=== PATIENT | male | born 1995 | race Caucasian/White ===

== ENCOUNTER 2022-09-17 12:37 | Inpatient (IN) | payer OTHER ==
[2022-09-17 13:31] VITALS: BMI 28.8
[2022-09-17] MEDS ORDERED: LOPERAMIDE HCL 2 MG CAPSULE PO PRN (15:58)
[2022-09-17] MEDS ORDERED: BENZOCAINE/MENTHOL (CHLORASEPTIC ) LOZENGE MM PRN (15:58)
[2022-09-17] MEDS ORDERED: ACETAMINOPHEN 325 MG TABLET (FP) PO PRN (15:58)
[2022-09-17] MEDS ORDERED: POLYETHYLENE GLYCOL (HEALTHYLAX) 3350 17 GM PACKET PO PRN (15:58)
[2022-09-17] MEDS ORDERED: MAG HYDROX/AL HYDROX/SIMETH 30 ML UNIT-DOSE CUP PO PRN (15:58)
[2022-09-17] MEDS ORDERED: MAGNESIUM HYDROX 2400MG/30ML ORAL SUSPENSION 30 ML CUP PO PRN (15:58)
[2022-09-17] MEDS ORDERED: P-EPHED 60MG/TRIPROLIDI 2.5MG TABLET PO PRN (15:58)
[2022-09-17] MEDS ORDERED: guaiFENesin 200 MG/10 ML 10 ML UNIT-DOSE CUPS PO PRN (15:58)
[2022-09-17] MEDS ORDERED: IBUPROFEN 400 MG TABLET (FP) PO PRN (15:58)
[2022-09-17] MEDS ORDERED: NALOXONE HCL (KLOXXADO) 8 MG SPRAY NS PRN (15:58)
[2022-09-17] MEDS ORDERED: BUPRENORPHINE/NALOXONE 12 MG-3 MG SL FILM PACKET SL ONE (20:30)
[2022-09-17] MEDS: THIAMINE HCL 100 MG TABLET (FP) PO SCH (21:33)
[2022-09-17] MEDS: MELATONIN 5 MG TABLETS PO SCH (21:33)
[2022-09-17] MEDS: NICOTINE 10 MG CARTRIDGE (INHALER) IH PRN (21:34)
[2022-09-17] MEDS: NICOTINE 21 MG/24 HOURS TOPICAL PATCH TD SCH (21:35)
[2022-09-17] MEDS: hydrOXYzine PAMOATE 25 MG CAPSULE (FP) PO PRN (21:38)
[2022-09-17] MEDS ORDERED: TUBERCULIN PPD 5 TU/0.1ML VIAL ID ONE (21:39)
[2022-09-17] MEDS: NICOTINE POLACRILEX 4 MG GUM BUC PRN (21:42)
[2022-09-18] MEDS: PRENATAL VITAMINS W/ FOLIC ACID TABLET (FP) PO SCH (10:51)
[2022-09-18] MEDS: NICOTINE 21 MG/24 HOURS TOPICAL PATCH TD SCH (10:52)
[2022-09-18] MEDS: BUPRENORPHINE/NALOXONE 12 MG-3 MG SL FILM PACKET SL SCH (10:52)
[2022-09-18] MEDS: NICOTINE 10 MG CARTRIDGE (INHALER) IH PRN ×3 (10:58→21:41)
[2022-09-18] MEDS: hydrOXYzine PAMOATE 25 MG CAPSULE (FP) PO PRN ×2 (10:59→19:08)
[2022-09-18 12:17] LABS: HEMATOCRIT 42.9 % (35.4-49); HEMOGLOBIN 14.5 GM/dL (11.7-16.9); MCHC 33.9 g/dl (32.0-35.9); MEAN CELL VOLUME 88.5 fl (80-96); MEAN PLT VOLUME 8.3 fl (7.5-11.1); PLATELET COUNT 260 10^3/uL (134-434); RBC 4.84 M/mm3 (4.00-5.60); RDW 13.6 % (11.9-15.9); WHITE BLOOD COUNT 6.6 K/mm3 (4.0-10.0)
[2022-09-18 12:38] LABS: CALCIUM 9.7 mg/dL (8.5-10.1)
[2022-09-18 12:39] LABS: ALBUMIN 4.3 g/dl (3.4-5.0); BLOOD UREA NITROGEN 12.6 mg/dL (7-18); CREATININE 0.9 mg/dL (0.55-1.3)
[2022-09-18 12:41] LABS: BILIRUBIN,TOTAL 0.4 mg/dL (0.2-1); TOT PROT 8.1 g/dl (6.4-8.2)
[2022-09-18 13:19] LABS: SYPHILIS W/ RPR CONF NON-REACTIVE (NONREACTIVE)
[2022-09-18] MEDS ORDERED: LURASIDONE HCL 40 MG TABLET PO SCH (14:45)
[2022-09-18] MEDS: FLUoxetine HCL 20 MG CAPSULE PO SCH (16:00)
[2022-09-18] MEDS: LURASIDONE HCL 40 MG, LURASIDONE HCL 20 MG PO SCH (16:00)
[2022-09-18] MEDS: TOPIRAMATE 25 MG TABLET PO SCH (16:00)
[2022-09-18] MEDS: BENZTROPINE MESYLATE 1 MG TABLET PO SCH (21:39)
[2022-09-18] MEDS: QUEtiapine FUMARATE 50 MG TABLET PO SCH (21:39)
[2022-09-18] MEDS: MELATONIN 5 MG TABLETS PO SCH (21:39)
[2022-09-18] MEDS: GABAPENTIN 400 MG CAPSULE PO SCH (21:39)
[2022-09-18] MEDS: THIAMINE HCL 100 MG TABLET (FP) PO SCH (21:39)
[2022-09-18] MEDS: HALOPERIDOL 5 MG TABLET PO SCH (21:39)
[2022-09-18] MEDS: TOPIRAMATE 100 MG TABLET PO SCH (23:38)
[2022-09-19] MEDS: PRENATAL VITAMINS W/ FOLIC ACID TABLET (FP) PO SCH (10:37)
[2022-09-19] MEDS: GABAPENTIN 400 MG CAPSULE PO SCH ×2 (10:38→21:28)
[2022-09-19] MEDS: BENZTROPINE MESYLATE 1 MG TABLET PO SCH ×2 (10:38→21:28)
[2022-09-19] MEDS: BUPRENORPHINE/NALOXONE 12 MG-3 MG SL FILM PACKET SL SCH (10:38)
[2022-09-19] MEDS: FLUoxetine HCL 20 MG CAPSULE PO SCH (10:38)
[2022-09-19] MEDS: LURASIDONE HCL 40 MG, LURASIDONE HCL 20 MG PO SCH (10:38)
[2022-09-19] MEDS: HALOPERIDOL 5 MG TABLET PO SCH ×2 (10:38→21:28)
[2022-09-19] MEDS: TOPIRAMATE 25 MG TABLET PO SCH (10:40)
[2022-09-19] MEDS: NICOTINE 21 MG/24 HOURS TOPICAL PATCH TD SCH (10:40)
[2022-09-19] MEDS: NICOTINE 10 MG CARTRIDGE (INHALER) IH PRN ×2 (14:11→19:01)
[2022-09-19] MEDS: hydrOXYzine PAMOATE 25 MG CAPSULE (FP) PO PRN (14:11)
[2022-09-19 14:27] LABS: PH,URINE 6.5 (5.0-8.0); URINE APPEARANCE CLEAR; URINE BILIRUBIN NEGATIVE (NEGATIVE); URINE COLOR YELLOW; URINE GLUCOSE (UA) NEGATIVE (NEGATIVE); URINE KETONE NEGATIVE (NEGATIVE); URINE LEUK ESTERASE NEGATIVE (NEGATIVE); URINE NITRITE NEGATIVE (NEGATIVE); URINE PROTEIN NEGATIVE (NEGATIVE); URINE UROBILINOGEN 0.2 mg/dL (0.2-1.0)
[2022-09-19] MEDS: TOPIRAMATE 100 MG TABLET PO SCH (21:27)
[2022-09-19] MEDS: MELATONIN 5 MG TABLETS PO SCH (21:27)
[2022-09-19] MEDS: THIAMINE HCL 100 MG TABLET (FP) PO SCH (21:27)
[2022-09-19] MEDS: QUEtiapine FUMARATE 50 MG TABLET PO SCH (21:28)
[2022-09-19] MEDS: NICOTINE POLACRILEX 4 MG GUM BUC PRN (21:38)
[2022-09-20] MEDS: LURASIDONE HCL 40 MG, LURASIDONE HCL 20 MG PO SCH (10:24)
[2022-09-20] MEDS: GABAPENTIN 400 MG CAPSULE PO SCH ×2 (10:24→21:11)
[2022-09-20] MEDS: BENZTROPINE MESYLATE 1 MG TABLET PO SCH ×2 (10:24→21:11)
[2022-09-20] MEDS: FLUoxetine HCL 20 MG CAPSULE PO SCH (10:24)
[2022-09-20] MEDS: BUPRENORPHINE/NALOXONE 12 MG-3 MG SL FILM PACKET SL SCH (10:24)
[2022-09-20] MEDS: TOPIRAMATE 25 MG TABLET PO SCH (10:24)
[2022-09-20] MEDS: HALOPERIDOL 5 MG TABLET PO SCH ×2 (10:25→21:11)
[2022-09-20] MEDS: NICOTINE 21 MG/24 HOURS TOPICAL PATCH TD SCH (10:25)
[2022-09-20] MEDS: PRENATAL VITAMINS W/ FOLIC ACID TABLET (FP) PO SCH (10:25)
[2022-09-20] MEDS: NICOTINE 10 MG CARTRIDGE (INHALER) IH PRN ×3 (10:26→21:12)
[2022-09-20] MEDS: hydrOXYzine PAMOATE 25 MG CAPSULE (FP) PO PRN (16:47)
[2022-09-20] MEDS: THIAMINE HCL 100 MG TABLET (FP) PO SCH (21:11)
[2022-09-20] MEDS: QUEtiapine FUMARATE 50 MG TABLET PO SCH (21:11)
[2022-09-20] MEDS: MELATONIN 5 MG TABLETS PO SCH (21:11)
[2022-09-20] MEDS: TOPIRAMATE 100 MG TABLET PO SCH (21:12)
[2022-09-20] MEDS: NICOTINE POLACRILEX 4 MG GUM BUC PRN (21:13)
[2022-09-21] MEDS: hydrOXYzine PAMOATE 25 MG CAPSULE (FP) PO PRN ×2 (05:54→21:23)
[2022-09-21] MEDS: NICOTINE 10 MG CARTRIDGE (INHALER) IH PRN ×3 (05:56→19:35)
[2022-09-21] MEDS: PRENATAL VITAMINS W/ FOLIC ACID TABLET (FP) PO SCH (09:56)
[2022-09-21] MEDS: LURASIDONE HCL 40 MG, LURASIDONE HCL 20 MG PO SCH (09:56)
[2022-09-21] MEDS: TOPIRAMATE 25 MG TABLET PO SCH (09:56)
[2022-09-21] MEDS: FLUoxetine HCL 20 MG CAPSULE PO SCH (09:56)
[2022-09-21] MEDS: GABAPENTIN 400 MG CAPSULE PO SCH ×2 (09:56→21:21)
[2022-09-21] MEDS: HALOPERIDOL 5 MG TABLET PO SCH ×2 (09:56→21:21)
[2022-09-21] MEDS: BENZTROPINE MESYLATE 1 MG TABLET PO SCH ×2 (09:56→21:21)
[2022-09-21] MEDS: NICOTINE 21 MG/24 HOURS TOPICAL PATCH TD SCH (09:57)
[2022-09-21] MEDS: BUPRENORPHINE/NALOXONE 12 MG-3 MG SL FILM PACKET SL SCH (09:57)
[2022-09-21] MEDS: TOPIRAMATE 100 MG TABLET PO SCH (21:21)
[2022-09-21] MEDS: QUEtiapine FUMARATE 50 MG TABLET PO SCH (21:21)
[2022-09-21] MEDS: MELATONIN 5 MG TABLETS PO SCH (21:21)
[2022-09-21] MEDS: THIAMINE HCL 100 MG TABLET (FP) PO SCH (21:21)
[2022-09-22] MEDS: NICOTINE 10 MG CARTRIDGE (INHALER) IH PRN ×3 (05:58→21:17)
[2022-09-22] MEDS: hydrOXYzine PAMOATE 25 MG CAPSULE (FP) PO PRN (05:58)
[2022-09-22] MEDS: BENZTROPINE MESYLATE 1 MG TABLET PO SCH ×2 (10:09→21:17)
[2022-09-22] MEDS: HALOPERIDOL 5 MG TABLET PO SCH ×2 (10:09→21:17)
[2022-09-22] MEDS: NICOTINE 21 MG/24 HOURS TOPICAL PATCH TD SCH (10:09)
[2022-09-22] MEDS: TOPIRAMATE 25 MG TABLET PO SCH (10:09)
[2022-09-22] MEDS: LURASIDONE HCL 40 MG, LURASIDONE HCL 20 MG PO SCH (10:09)
[2022-09-22] MEDS: PRENATAL VITAMINS W/ FOLIC ACID TABLET (FP) PO SCH (10:09)
[2022-09-22] MEDS: FLUoxetine HCL 20 MG CAPSULE PO SCH (10:09)
[2022-09-22] MEDS: BUPRENORPHINE/NALOXONE 12 MG-3 MG SL FILM PACKET SL SCH (10:09)
[2022-09-22] MEDS: GABAPENTIN 400 MG CAPSULE PO SCH ×2 (10:09→21:17)
[2022-09-22] MEDS: MELATONIN 5 MG TABLETS PO SCH (21:17)
[2022-09-22] MEDS: THIAMINE HCL 100 MG TABLET (FP) PO SCH (21:17)
[2022-09-22] MEDS: TOPIRAMATE 100 MG TABLET PO SCH (21:17)
[2022-09-22] MEDS: QUEtiapine FUMARATE 50 MG TABLET PO SCH (21:17)
[2022-09-23] MEDS: TOPIRAMATE 25 MG TABLET PO SCH (09:45)
[2022-09-23] MEDS: NICOTINE 21 MG/24 HOURS TOPICAL PATCH TD SCH (09:45)
[2022-09-23] MEDS: BENZTROPINE MESYLATE 1 MG TABLET PO SCH ×2 (09:45→21:32)
[2022-09-23] MEDS: GABAPENTIN 400 MG CAPSULE PO SCH ×2 (09:45→21:32)
[2022-09-23] MEDS: HALOPERIDOL 5 MG TABLET PO SCH ×2 (09:45→21:32)
[2022-09-23] MEDS: LURASIDONE HCL 40 MG, LURASIDONE HCL 20 MG PO SCH (09:45)
[2022-09-23] MEDS: BUPRENORPHINE/NALOXONE 12 MG-3 MG SL FILM PACKET SL SCH (09:45)
[2022-09-23] MEDS: PRENATAL VITAMINS W/ FOLIC ACID TABLET (FP) PO SCH (09:45)
[2022-09-23] MEDS: FLUoxetine HCL 20 MG CAPSULE PO SCH (09:45)
[2022-09-23] MEDS: NICOTINE 10 MG CARTRIDGE (INHALER) IH PRN ×2 (09:46→21:34)
[2022-09-23] MEDS: hydrOXYzine PAMOATE 25 MG CAPSULE (FP) PO PRN (18:32)
[2022-09-23] MEDS: QUEtiapine FUMARATE 50 MG TABLET PO SCH (21:32)
[2022-09-23] MEDS: MELATONIN 5 MG TABLETS PO SCH (21:32)
[2022-09-23] MEDS: THIAMINE HCL 100 MG TABLET (FP) PO SCH (21:32)
[2022-09-23] MEDS: TOPIRAMATE 100 MG TABLET PO SCH (21:34)
[2022-09-24] MEDS ORDERED: FAMOTIDINE 20 MG TABLET PO PRN (10:00)
[2022-09-24] MEDS ORDERED: PATIENT'S OWN MEDICATION (NON-FORMULARY) (Lurasidone Hcl [Latuda] 60 MG Tablet) PO SCH (10:00)
[2022-09-24] MEDS ORDERED: PATIENT'S OWN MEDICATION (NON-FORMULARY) (Fluoxetine Hcl [Prozac] 40 MG Capsule) PO SCH (10:00)
[2022-09-24] MEDS ORDERED: PATIENT'S OWN MEDICATION (NON-FORMULARY) (Topiramate [Topamax] 50 MG Tablet) PO SCH ×2 (10:00→22:00)
[2022-09-24] MEDS: FLUoxetine HCL 20 MG CAPSULE PO SCH (10:15)
[2022-09-24] MEDS: PRENATAL VITAMINS W/ FOLIC ACID TABLET (FP) PO SCH (10:15)
[2022-09-24] MEDS: BUPRENORPHINE/NALOXONE 12 MG-3 MG SL FILM PACKET SL SCH (10:16)
[2022-09-24] MEDS: HALOPERIDOL 5 MG TABLET PO SCH ×2 (10:16→21:12)
[2022-09-24] MEDS: GABAPENTIN 400 MG CAPSULE PO SCH ×2 (10:16→21:13)
[2022-09-24] MEDS: LURASIDONE HCL 40 MG, LURASIDONE HCL 20 MG PO SCH (10:16)
[2022-09-24] MEDS: NICOTINE 21 MG/24 HOURS TOPICAL PATCH TD SCH (10:16)
[2022-09-24] MEDS: TOPIRAMATE 25 MG TABLET PO SCH (10:16)
[2022-09-24] MEDS: BENZTROPINE MESYLATE 1 MG TABLET PO SCH ×2 (10:16→21:12)
[2022-09-24] MEDS: APIXABAN 5 MG TABLET PO SCH ×2 (10:17→21:13)
[2022-09-24] MEDS: NICOTINE 10 MG CARTRIDGE (INHALER) IH PRN ×2 (10:18→21:15)
[2022-09-24] MEDS: QUEtiapine FUMARATE 50 MG TABLET PO SCH (21:12)
[2022-09-24] MEDS: TOPIRAMATE 100 MG TABLET PO SCH (21:13)
[2022-09-24] MEDS: THIAMINE HCL 100 MG TABLET (FP) PO SCH (21:13)
[2022-09-24] MEDS: MELATONIN 5 MG TABLETS PO SCH (21:14)
[2022-09-24] MEDS: hydrOXYzine PAMOATE 25 MG CAPSULE (FP) PO PRN (21:14)
[2022-09-24] MEDS: NICOTINE POLACRILEX 4 MG GUM BUC PRN (21:15)
[2022-09-24] MEDS ORDERED: [UNRECOGNIZED DRUG - OTHER] PO SCH (22:00)
[2022-09-24] MEDS ORDERED: HYDROXYZINE HCL PO SCH (22:00)
[2022-09-25] MEDS: NICOTINE 10 MG CARTRIDGE (INHALER) IH PRN ×3 (06:46→21:31)
[2022-09-25] MEDS: hydrOXYzine PAMOATE 25 MG CAPSULE (FP) PO PRN (06:47)
[2022-09-25] MEDS: GABAPENTIN 400 MG CAPSULE PO SCH ×2 (10:15→21:31)
[2022-09-25] MEDS: BENZTROPINE MESYLATE 1 MG TABLET PO SCH ×2 (10:15→21:31)
[2022-09-25] MEDS: PRENATAL VITAMINS W/ FOLIC ACID TABLET (FP) PO SCH (10:15)
[2022-09-25] MEDS: APIXABAN 5 MG TABLET PO SCH ×2 (10:15→21:31)
[2022-09-25] MEDS: FLUoxetine HCL 20 MG CAPSULE PO SCH (10:15)
[2022-09-25] MEDS: HALOPERIDOL 5 MG TABLET PO SCH ×2 (10:15→21:31)
[2022-09-25] MEDS: TOPIRAMATE 25 MG TABLET PO SCH (10:16)
[2022-09-25] MEDS: BUPRENORPHINE/NALOXONE 12 MG-3 MG SL FILM PACKET SL SCH (10:17)
[2022-09-25] MEDS: NICOTINE 21 MG/24 HOURS TOPICAL PATCH TD SCH (10:17)
[2022-09-25] MEDS: LURASIDONE HCL 40 MG, LURASIDONE HCL 20 MG PO SCH (10:18)
[2022-09-25] MEDS: TOPIRAMATE 100 MG TABLET PO SCH (21:31)
[2022-09-25] MEDS: QUEtiapine FUMARATE 50 MG TABLET PO SCH (21:31)
[2022-09-25] MEDS: THIAMINE HCL 100 MG TABLET (FP) PO SCH (21:31)
[2022-09-25] MEDS: MELATONIN 5 MG TABLETS PO SCH (21:31)
[2022-09-26] MEDS: hydrOXYzine PAMOATE 25 MG CAPSULE (FP) PO PRN (06:18)
[2022-09-26] MEDS: NICOTINE 10 MG CARTRIDGE (INHALER) IH PRN ×2 (06:20→21:24)
[2022-09-26] MEDS: APIXABAN 5 MG TABLET PO SCH ×2 (10:17→21:21)
[2022-09-26] MEDS: PRENATAL VITAMINS W/ FOLIC ACID TABLET (FP) PO SCH (10:17)
[2022-09-26] MEDS: GABAPENTIN 400 MG CAPSULE PO SCH ×2 (10:18→21:22)
[2022-09-26] MEDS: HALOPERIDOL 5 MG TABLET PO SCH ×2 (10:18→21:21)
[2022-09-26] MEDS: TOPIRAMATE 25 MG TABLET PO SCH (10:18)
[2022-09-26] MEDS: FLUoxetine HCL 20 MG CAPSULE PO SCH (10:18)
[2022-09-26] MEDS: BENZTROPINE MESYLATE 1 MG TABLET PO SCH ×2 (10:19→21:21)
[2022-09-26] MEDS: NICOTINE 21 MG/24 HOURS TOPICAL PATCH TD SCH (10:21)
[2022-09-26] MEDS: BUPRENORPHINE/NALOXONE 12 MG-3 MG SL FILM PACKET SL SCH (10:23)
[2022-09-26] MEDS: LURASIDONE HCL 40 MG, LURASIDONE HCL 20 MG PO SCH (10:25)
[2022-09-26] MEDS: QUEtiapine FUMARATE 50 MG TABLET PO SCH (21:21)
[2022-09-26] MEDS: THIAMINE HCL 100 MG TABLET (FP) PO SCH (21:21)
[2022-09-26] MEDS: MELATONIN 5 MG TABLETS PO SCH (21:22)
[2022-09-26] MEDS: TOPIRAMATE 100 MG TABLET PO SCH (21:23)
[2022-09-27] MEDS: FLUoxetine HCL 20 MG CAPSULE PO SCH (09:55)
[2022-09-27] MEDS: BENZTROPINE MESYLATE 1 MG TABLET PO SCH ×2 (09:55→21:45)
[2022-09-27] MEDS: APIXABAN 5 MG TABLET PO SCH ×2 (09:55→21:45)
[2022-09-27] MEDS: GABAPENTIN 400 MG CAPSULE PO SCH ×2 (09:55→21:45)
[2022-09-27] MEDS: PRENATAL VITAMINS W/ FOLIC ACID TABLET (FP) PO SCH (09:55)
[2022-09-27] MEDS: HALOPERIDOL 5 MG TABLET PO SCH ×2 (09:55→21:46)
[2022-09-27] MEDS: BUPRENORPHINE/NALOXONE 12 MG-3 MG SL FILM PACKET SL SCH (09:56)
[2022-09-27] MEDS: NICOTINE 21 MG/24 HOURS TOPICAL PATCH TD SCH (09:56)
[2022-09-27] MEDS: LURASIDONE HCL 40 MG, LURASIDONE HCL 20 MG PO SCH (09:56)
[2022-09-27] MEDS: TOPIRAMATE 25 MG TABLET PO SCH (09:56)
[2022-09-27] MEDS: NICOTINE 10 MG CARTRIDGE (INHALER) IH PRN ×3 (09:57→21:46)
[2022-09-27] MEDS: QUEtiapine FUMARATE 50 MG TABLET PO SCH (21:45)
[2022-09-27] MEDS: TOPIRAMATE 100 MG TABLET PO SCH (21:45)
[2022-09-27] MEDS: THIAMINE HCL 100 MG TABLET (FP) PO SCH (21:45)
[2022-09-27] MEDS: MELATONIN 5 MG TABLETS PO SCH (21:46)
[2022-09-28] MEDS: BENZTROPINE MESYLATE 1 MG TABLET PO SCH ×2 (10:35→21:25)
[2022-09-28] MEDS: APIXABAN 5 MG TABLET PO SCH ×2 (10:35→21:25)
[2022-09-28] MEDS: FLUoxetine HCL 20 MG CAPSULE PO SCH (10:35)
[2022-09-28] MEDS: HALOPERIDOL 5 MG TABLET PO SCH ×2 (10:35→21:24)
[2022-09-28] MEDS: GABAPENTIN 400 MG CAPSULE PO SCH ×2 (10:35→21:24)
[2022-09-28] MEDS: PRENATAL VITAMINS W/ FOLIC ACID TABLET (FP) PO SCH (10:36)
[2022-09-28] MEDS: NICOTINE 21 MG/24 HOURS TOPICAL PATCH TD SCH (10:36)
[2022-09-28] MEDS: BUPRENORPHINE/NALOXONE 12 MG-3 MG SL FILM PACKET SL SCH (10:36)
[2022-09-28] MEDS: TOPIRAMATE 25 MG TABLET PO SCH (10:39)
[2022-09-28] MEDS: LURASIDONE HCL 40 MG, LURASIDONE HCL 20 MG PO SCH (11:28)
[2022-09-28] MEDS: hydrOXYzine PAMOATE 25 MG CAPSULE (FP) PO PRN (18:34)
[2022-09-28] MEDS: NICOTINE 10 MG CARTRIDGE (INHALER) IH PRN ×2 (18:35→21:25)
[2022-09-28] MEDS: QUEtiapine FUMARATE 50 MG TABLET PO SCH (21:24)
[2022-09-28] MEDS: TOPIRAMATE 100 MG TABLET PO SCH (21:24)
[2022-09-28] MEDS: MELATONIN 5 MG TABLETS PO SCH (21:25)
[2022-09-28] MEDS: THIAMINE HCL 100 MG TABLET (FP) PO SCH (21:25)
[2022-09-29] MEDS: TOPIRAMATE 25 MG TABLET PO SCH (09:34)
[2022-09-29] MEDS: BUPRENORPHINE/NALOXONE 12 MG-3 MG SL FILM PACKET SL SCH (09:34)
[2022-09-29] MEDS: GABAPENTIN 400 MG CAPSULE PO SCH ×2 (09:34→21:01)
[2022-09-29] MEDS: FLUoxetine HCL 20 MG CAPSULE PO SCH (09:34)
[2022-09-29] MEDS: NICOTINE 21 MG/24 HOURS TOPICAL PATCH TD SCH (09:34)
[2022-09-29] MEDS: APIXABAN 5 MG TABLET PO SCH ×2 (09:34→21:00)
[2022-09-29] MEDS: BENZTROPINE MESYLATE 1 MG TABLET PO SCH ×2 (09:34→21:00)
[2022-09-29] MEDS: HALOPERIDOL 5 MG TABLET PO SCH ×2 (09:34→21:00)
[2022-09-29] MEDS: PRENATAL VITAMINS W/ FOLIC ACID TABLET (FP) PO SCH (09:35)
[2022-09-29] MEDS: LURASIDONE HCL 40 MG, LURASIDONE HCL 20 MG PO SCH (09:35)
[2022-09-29] MEDS: NICOTINE 10 MG CARTRIDGE (INHALER) IH PRN (18:13)
[2022-09-29] MEDS: QUEtiapine FUMARATE 50 MG TABLET PO SCH (21:00)
[2022-09-29] MEDS: MELATONIN 5 MG TABLETS PO SCH (21:00)
[2022-09-29] MEDS: THIAMINE HCL 100 MG TABLET (FP) PO SCH (21:01)
[2022-09-29] MEDS: TOPIRAMATE 100 MG TABLET PO SCH (21:01)
[2022-09-30] MEDS: NICOTINE 10 MG CARTRIDGE (INHALER) IH PRN ×3 (06:07→21:26)
[2022-09-30] MEDS: PRENATAL VITAMINS W/ FOLIC ACID TABLET (FP) PO SCH (10:33)
[2022-09-30] MEDS: GABAPENTIN 400 MG CAPSULE PO SCH ×2 (10:34→21:27)
[2022-09-30] MEDS: FLUoxetine HCL 20 MG CAPSULE PO SCH (10:34)
[2022-09-30] MEDS: BUPRENORPHINE/NALOXONE 12 MG-3 MG SL FILM PACKET SL SCH (10:34)
[2022-09-30] MEDS: HALOPERIDOL 5 MG TABLET PO SCH ×2 (10:34→21:27)
[2022-09-30] MEDS: TOPIRAMATE 25 MG TABLET PO SCH (10:34)
[2022-09-30] MEDS: BENZTROPINE MESYLATE 1 MG TABLET PO SCH ×2 (10:34→21:26)
[2022-09-30] MEDS: APIXABAN 5 MG TABLET PO SCH ×2 (10:34→21:26)
[2022-09-30] MEDS: NICOTINE 21 MG/24 HOURS TOPICAL PATCH TD SCH (10:35)
[2022-09-30] MEDS: LURASIDONE HCL 40 MG, LURASIDONE HCL 20 MG PO SCH (10:37)
[2022-09-30] MEDS: NICOTINE POLACRILEX 4 MG GUM BUC PRN (10:38)
[2022-09-30] MEDS: MELATONIN 5 MG TABLETS PO SCH (21:26)
[2022-09-30] MEDS: QUEtiapine FUMARATE 50 MG TABLET PO SCH (21:27)
[2022-09-30] MEDS: hydrOXYzine PAMOATE 25 MG CAPSULE (FP) PO PRN (21:27)
[2022-09-30] MEDS: THIAMINE HCL 100 MG TABLET (FP) PO SCH (21:27)
[2022-09-30] MEDS: TOPIRAMATE 100 MG TABLET PO SCH (21:27)
[2022-10-01] MEDS: PRENATAL VITAMINS W/ FOLIC ACID TABLET (FP) PO SCH (10:05)
[2022-10-01] MEDS: BENZTROPINE MESYLATE 1 MG TABLET PO SCH ×2 (10:05→21:02)
[2022-10-01] MEDS: GABAPENTIN 400 MG CAPSULE PO SCH ×2 (10:05→21:02)
[2022-10-01] MEDS: APIXABAN 5 MG TABLET PO SCH ×2 (10:05→21:02)
[2022-10-01] MEDS: HALOPERIDOL 5 MG TABLET PO SCH ×2 (10:05→21:02)
[2022-10-01] MEDS: LURASIDONE HCL 40 MG, LURASIDONE HCL 20 MG PO SCH (10:05)
[2022-10-01] MEDS: BUPRENORPHINE/NALOXONE 12 MG-3 MG SL FILM PACKET SL SCH (10:05)
[2022-10-01] MEDS: FLUoxetine HCL 20 MG CAPSULE PO SCH (10:05)
[2022-10-01] MEDS: TOPIRAMATE 25 MG TABLET PO SCH (10:05)
[2022-10-01] MEDS: NICOTINE 21 MG/24 HOURS TOPICAL PATCH TD SCH (10:06)
[2022-10-01] MEDS: NICOTINE 10 MG CARTRIDGE (INHALER) IH PRN ×2 (10:06→21:02)
[2022-10-01] MEDS: NICOTINE POLACRILEX 4 MG GUM BUC PRN ×2 (10:06→12:47)
[2022-10-01] MEDS: MELATONIN 5 MG TABLETS PO SCH (21:02)
[2022-10-01] MEDS: TOPIRAMATE 100 MG TABLET PO SCH (21:02)
[2022-10-01] MEDS: QUEtiapine FUMARATE 50 MG TABLET PO SCH (21:02)
[2022-10-01] MEDS: hydrOXYzine PAMOATE 25 MG CAPSULE (FP) PO PRN (21:03)
[2022-10-01] MEDS: THIAMINE HCL 100 MG TABLET (FP) PO SCH (21:03)
[2022-10-02] MEDS: hydrOXYzine PAMOATE 25 MG CAPSULE (FP) PO PRN (03:38)
[2022-10-02] MEDS: NICOTINE 10 MG CARTRIDGE (INHALER) IH PRN (06:30)
[2022-10-02 07:19] VITALS: BP 113/68; PULSE 94; RESP 20; TEMP 98.4
[2022-10-02] MEDS: HALOPERIDOL 5 MG TABLET PO SCH (09:03)
[2022-10-02] MEDS: LURASIDONE HCL 40 MG, LURASIDONE HCL 20 MG PO SCH (09:03)
[2022-10-02] MEDS: GABAPENTIN 400 MG CAPSULE PO SCH (09:03)
[2022-10-02] MEDS: PRENATAL VITAMINS W/ FOLIC ACID TABLET (FP) PO SCH (09:03)
[2022-10-02] MEDS: BUPRENORPHINE/NALOXONE 12 MG-3 MG SL FILM PACKET SL SCH (09:03)
[2022-10-02] MEDS: NICOTINE 21 MG/24 HOURS TOPICAL PATCH TD SCH (09:03)
[2022-10-02] MEDS: FLUoxetine HCL 20 MG CAPSULE PO SCH (09:03)
[2022-10-02] MEDS: TOPIRAMATE 25 MG TABLET PO SCH (09:03)
[2022-10-02] MEDS: BENZTROPINE MESYLATE 1 MG TABLET PO SCH (09:03)
[2022-10-02] MEDS: APIXABAN 5 MG TABLET PO SCH (09:03)
== END 2022-10-02 09:38 | disposition home or self-care (01) | DRG 772 ==
LOC: YASAS 12:37 → Y3W 20:04
PROVIDERS: ADMIT Allergy & Immunology; ATTEND Allergy & Immunology
PROC: HZ42ZZZ Group Counseling for Substance Abuse Treatment, Cognitive-Behavioral (ICD-10-PCS; principal; 2022-09-17)
DX: F11.20 Opioid dependence, uncomplicated (principal); F10.20 Alcohol dependence, uncomplicated; F14.20 Cocaine dependence, uncomplicated; F13.20 Sedative, hypnotic or anxiolytic dependence, uncomplicated; F17.210 Nicotine dependence, cigarettes, uncomplicated; F19.282 Other psychoactive substance dependence with psychoactive substance-induced sleep disorder; F19.24 Other psychoactive substance dependence with psychoactive substance-induced mood disorder; F20.9 Schizophrenia, unspecified
CPT/HCPCS: 36415; 80053; 81003; 85027; 86780; 86803; 87522; 87811; C9803-CS; U0003; U0005